=== PATIENT | male | born 1965 | race Native Hawaiian/Other Pacific Islander ===

== ENCOUNTER 2019-12-05 10:41 | Outpatient (CLI) | payer BC | END 2019-12-05 11:11 | disposition short-term general hospital (02) | LOC: AMB 10:41 | DX: R07.89 Other chest pain (principal); R10.13 Epigastric pain; R06.02 Shortness of breath | CPT/HCPCS: A0425; A0427 ==

== ENCOUNTER 2021-10-22 08:36 | Outpatient (CLI) | payer BC | END 2021-10-22 18:49 | disposition home or self-care (01) | LOC: MRI 08:36 | PROVIDERS: ATTEND Nurse Practitioner | DX: M51.36 Other intervertebral disc degeneration, lumbar region (principal) ==

== ENCOUNTER 2021-10-30 09:28 | Outpatient (CLI) | payer BC | END 2021-10-30 21:20 | disposition home or self-care (01) | LOC: CT 09:28 | PROVIDERS: ATTEND Nurse Practitioner | DX: R93.7 Abnormal findings on diagnostic imaging of other parts of musculoskeletal system (principal) | CPT/HCPCS: 36415; 82565; 84520 ==